=== PATIENT | female | born 1990 | race Native Hawaiian/Other Pacific Islander ===

== ENCOUNTER 2024-11-07 04:58 | Inpatient (IN) ==
[2024-11-07 05:22] VITALS: BMI 24.9
[2024-11-07] MEDS: LR 1,000 ML IV 1,000 ML IV ONE ×2 (05:35→06:59)
[2024-11-07 06:05] LABS: AMNISURE ROM TEST THERE IS A RUPTURE (NO RUPTURE); BILIRUBIN,URINE NEGATIVE (NEGATIVE); BLOOD/HEMOGLOBIN,URINE 5+ (NEGATIVE); GLUCOSE, URINE NEGATIVE (NEGATIVE); KETONES,URINE NEGATIVE (NEGATIVE); LEUKOCYTE ESTERASE ,URINE 1+ (NEGATIVE); NITRITES,URINE NEGATIVE (NEGATIVE); PROTEIN,URINE 3+ (NEGATIVE); UROBILINOGEN,URINE NORMAL (NORMAL)
[2024-11-07 06:15] LABS: APPEARANCE,URINE CLOUDY (CLEAR); COLOR,URINE BLOODY (YELLOW)
[2024-11-07 06:16] LABS: BACTERIA,URINE TRACE /HPF (NEGATIVE); RBC,URINE TNTC /HPF (0-3); SQUAMOUS EPITHELIAL CELL,UR MODERATE /HPF (NEGATIVE)
[2024-11-07 06:24] LABS: BASOPHILS % (AUTO) 0.6 % (0.2-1.0); EOSINOPHILS # (AUTO) 0.1 x10^3/uL (0.0-0.2); EOSINOPHILS % (AUTO) 1.4 % (0.9-2.9); HEMOGLOBIN 14.1 g/dL (12.0-16.0); LYMPHOCYTES # (AUTO) 2.1 X10^3/uL (1.3-2.9); LYMPHOCYTES % (AUTO) 26.8 % (21.0-51.0); MEAN CORPUSCULAR HEMOGLOBIN 31.4 pg (27.0-34.0); MEAN CORPUSCULAR HGB CONC 35.2 g/dL (33.0-35.0); MEAN PLATELET VOLUME 11.4 fL (7.4-11.0); MONOCYTES # (AUTO) 0.6 x10^3/uL (0.3-0.8); MONOCYTES % (AUTO) 7.6 % (0.0-13.0); NEUTROPHILS # (AUTO) 5.1 x10^3/uL (2.2-4.8); NEUTROPHILS % (AUTO) 63.6 % (42.0-75.0); PLATELET COUNT 183 X10^3/uL (150.0-450.0); RED CELL DISTRIBUTION WIDTH 14.3 % (11.6-16.5)
[2024-11-07 06:36] LABS: ALANINE AMINOTRANSFERASE 14 Units/L (12-78); ALBUMIN 2.6 g/dL (3.4-5.0); ALKALINE PHOSPHATASE 243 Units/L (46-116); ASPARTATE AMINO TRANSFERASE 17 Units/L (15-37); BLOOD UREA NITROGEN 8 mg/dL (7-18); CALCIUM 8.7 mg/dL (8.5-10.1); CARBON DIOXIDE 24.1 mmol/L (21-32); CHLORIDE 104 mmol/L (98-107); COR CA(FOR HYPOALB) 9.8 mg/dL (8.5-10.1); CREATININE 0.53 mg/dL (0.55-1.02); GLUCOSE 87 mg/dL (65-99); POTASSIUM 3.7 mmol/L (3.5-5.1); SODIUM 139 mmol/L (136-145); TOTAL PROTEIN 6.9 g/dL (6.4-8.2); eGFR NON BLACK RACES > 60 (>60)
[2024-11-07] MEDS: NS 100 ML IV 100 ML ONE (06:40)
[2024-11-07] MEDS: ANCEF VIAL 1 GRAM ONE (06:40)
[2024-11-07] MEDS: LR IV PRN (06:50)
[2024-11-07] MEDS: XYLOCAINE 2 % (PLAIN) ONE (06:59)
[2024-11-07] MEDS: PRECEDEX INJ VIAL IV PRN (07:00)
[2024-11-07] MEDS: PRECEDEX INJ VIAL ONE (07:00)
[2024-11-07] MEDS: VERSED ONE (07:00)
[2024-11-07] MEDS: MARCAINE SPINAL ONE (07:00)
[2024-11-07] MEDS: PITOCIN ONE (07:01)
[2024-11-07] MEDS: EPHEDRINE SULFATE INJ ONE (07:05)
[2024-11-07] MEDS: ZOFRAN INJ 4 MG VIAL IVP PRN (07:12)
[2024-11-07] MEDS: PITOCIN IVP PRN (07:20)
[2024-11-07] MEDS: ZOFRAN INJ 4 MG VIAL ONE (07:25)
[2024-11-07] MEDS ORDERED: BENADRYL INJ 50 MG VIAL IVP PRN (07:27)
[2024-11-07] MEDS ORDERED: ZOFRAN INJ 4 MG VIAL IVP PRN (07:27)
[2024-11-07] MEDS ORDERED: DILAUDID INJ IVP PRN (07:27)
[2024-11-07] MEDS ORDERED: REGLAN INJ 10 MG VIAL IVP PRN (07:27)
[2024-11-07] MEDS: VERSED IVP PRN (07:30)
[2024-11-07] MEDS ORDERED: PERCOCET TAB 5/325 MG PO PRN (07:33)
[2024-11-07] MEDS: EPHEDRINE SULFATE INJ IVP PRN (07:44)
[2024-11-07] MEDS ORDERED: MYLICON TAB 80 MG CHEW PO PRN (08:13)
[2024-11-07] MEDS: OXYTOCIN 20 UNIT/1,000 ML-NS 20 UNIT/1,000 ML PLAST..BAG IV SCH (08:51)
[2024-11-07] MEDS: PRENATAL PLUS PO SCH (09:02)
[2024-11-07] MEDS: MOTRIN TAB 800 MG PO PRN (10:19)
[2024-11-07] MEDS: TORADOL 30 MG VIAL IVP PRN (13:16)
[2024-11-07] MEDS: ADACEL or BOOSTRIX TDaP VACCINE IM ONE (14:51)
[2024-11-08 05:03] LABS: HEMATOCRIT 28.7 % (36.0-47.0)
[2024-11-08 05:14] LABS: HEMOGLOBIN 10.3 g/dL (12.0-16.0)
[2024-11-08] MEDS: COLACE CAP 100 MG PO SCH (20:55)
[2024-11-08] MEDS: MIRALAX POWDER (1 DOSE 17 G) PO SCH (21:00)
[2024-11-09] MEDS ORDERED: DESITIN DIAPER RASH CREAM TOP PRN (06:30)
[2024-11-09] MEDS: NORCO 7.5/325 MG TAB PO PRN (07:45)
[2024-11-09 11:35] VITALS: BP 99/55; PULSE 76; RESP 17; TEMP 98.4; O2SAT 97
== END 2024-11-09 12:40 | disposition home or self-care (01) | DRG 788 ==
LOC: ER 04:58 → LD 05:58 → MED/SURG 08:14
PROVIDERS: ADMIT Obstetrics & Gynecology Obstetrics; ATTEND Obstetrics & Gynecology Obstetrics
DX: N85.8 Other specified noninflammatory disorders of uterus; O34.211 Maternal care for low transverse scar from previous cesarean delivery; Z3A.38 38 weeks gestation of pregnancy; Z37.0 Single live birth